=== PATIENT | female | born 1945 | race American Indian/Alaskan Native ===

== ENCOUNTER 2017-09-22 05:26 | Emergency (ER) | payer MEDICARE ==
[2017-09-22 07:12] LABS: Hematocrit 44.1 % (30.3-42.9); Hemoglobin 14.9 gm/dl (10.1-14.3); Mean Corpuscular HGB Conc 34 % (30-34); Mean Corpuscular Hemoglobin 29 pg (28-32); Mean Corpuscular Volume 87 fl (79-97); Red Blood Count 5.08 M/mm3 (3.65-5.03); Red Cell Distribution Width 13.6 % (13.2-15.2); White Blood Count 4.3 K/mm3 (4.5-11.0)
[2017-09-22 07:13] LABS: Platelet Count 93 K/mm3 (140-440)
--- NOTE | 2017-09-22 07:46 | XRay Report ---
FINAL REPORT EXAM: XR CHEST ROUTINE 2V HISTORY: cough and congestion TECHNIQUE: AP portable view(s) of the chest obtained. PRIORS: 06/14/2016 FINDINGS: No mediastinal shift. Cardiac silhouette is not enlarged. Mild hyperaeration of the lungs and flattening of the hemidiaphragms suggestive of COPD. No pneumothorax, effusion, or focal pulmonary opacity identified. No acute skeletal findings. Partially imaged cervical fusion hardware. IMPRESSION: No acute pulmonary finding identified.
[2017-09-22 07:51] LABS: Anion Gap 17 mmol/L; BUN/Creatinine Ratio 29; Blood Urea Nitrogen 40 mg/dL (7-17); Calcium 8.8 mg/dL (8.4-10.2); Carbon Dioxide 32 mmol/L (22-30); Glucose 147 mg/dL (65-100); Potassium 3.3 mmol/L (3.6-5.0); Sodium 135 mmol/L (137-145)
[2017-09-22 08:28] LABS: Anisocytosis 1+; Basophils % (Manual) 0 % (0.0-1.8); Blastocytes % (Manual) 0 %; Eosinophils % (Manual) 0 % (0.0-4.3); Ovalocytes 1+; Platelet Estimate Appears Decreased
[2017-09-22 08:29] LABS: Diff Status Complete; Microcytosis Few
[2017-09-22] MEDS ORDERED: DUONEB *Not for PRN Use IH ONE (09:23)
[2017-09-22] MEDS ORDERED: DELTASONE PO ONE (09:26)
[2017-09-22] MEDS ORDERED: K-DUR PO ONE (09:26)
--- NOTE | 2017-09-22 09:59 | Emergency Department Report ---
ED Shortness of Breath HPI - General Chief Complaint: Upper Respiratory Infection Stated Complaint: BODYACHES; CHILLS; COUGH Time Seen by Provider: 09/22/17 09:25 Source: patient Mode of arrival: Ambulatory Limitations: No Limitations - History of Present Illness MD Complaint: shortness of breath, cough -: Gradual Improves With: nothing Worsens With: nothing Known History Of: COPD Associated Symptoms: denies other symptoms Treatments Prior to Arrival: none - Related Data Home Oxygen Therapy: No Previous Rx's Medication Instructions Recorded Last Taken Type Carvedilol [Coreg] 3.125 mg PO BID #60 tablet 09/20/15 1 Day Ago Rx ~06/13/16 3.125 Albuterol Sulfate [Ventolin HFA] 2 puff IH Q4H PRN #1 hfa.aer.ad 06/20/16 Unknown Rx Ipratropium/Albuterol Sulfate 1 ampul IH TIDRT #120 ampul.neb 06/20/16 Unknown Rx [DUONEB *Not for PRN Use*] Ipratropium/Albuterol Sulfate 1 ampul IH Q8HR #120 ampul.neb 06/20/16 Unknown Rx [Duoneb 0.5 mg-3 mg/3 ml Soln] Tiotropium [Spiriva] 1 puff IH Q24HRT #30 cap 06/20/16 Unknown Rx predniSONE [Deltasone] 20 mg PO DAILY #5 tablet 09/22/17 Unknown Rx Allergies Allergy/AdvReac Type Severity Reaction Status Date / Time No Known Allergies Allergy Verified 09/07/15 10:56 ED Review of Systems ROS: Stated complaint: BODYACHES; CHILLS; COUGH Other details as noted in HPI Comment: All other systems reviewed and negative Respiratory: cough, shortness of breath, other (copd ) ED Past Medical Hx - Past Medical History Previous Medical History?: Yes Hx Hypertension: Yes Hx Heart Attack/AMI: Yes (1992,2014) Hx Congestive Heart Failure: Yes (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 HERNIATED DISC. History of alcoholic liver cirrhosis, thrombocytopenia - Surgical History Hx Coronary Stent: No Additional Surgical History: Cervical spine surgery, x 3 - Social History Smoking Status: Former Smoker Substance Use Type: Alcohol - Medications Home Medications: Home Medications Medication Instructions Recorded Confirmed Last Taken Type Carvedilol [Coreg] 3.125 mg PO BID #60 tablet 09/20/15 06/14/16 1 Day Ago Rx ~06/13/16 3.125 Albuterol Sulfate [Ventolin HFA] 2 puff IH Q4H PRN #1 hfa.aer.ad 06/20/16 Unknown Rx Ipratropium/Albuterol Sulfate 1 ampul IH TIDRT #120 ampul.neb 06/20/16 Unknown Rx [DUONEB *Not for PRN Use*] Ipratropium/Albuterol Sulfate 1 ampul IH Q8HR #120 ampul.neb 06/20/16 Unknown Rx [Duoneb 0.5 mg-3 mg/3 ml Soln] Tiotropium [Spiriva] 1 puff IH Q24HRT #30 cap 06/20/16 Unknown Rx predniSONE [Deltasone] 20 mg PO DAILY #5 tablet 09/22/17 Unknown Rx ED Physical Exam - General Limitations: No Limitations General appearance: alert, in no apparent distress - Head Head exam: Present: atraumatic - Eye Eye exam: Present: PERRL - ENT ENT exam: Present: mucous membranes moist - Neck Neck exam: Present: normal inspection - Respiratory Respiratory exam: Present: normal lung sounds bilaterally, wheezes - Cardiovascular Cardiovascular Exam: Present: regular rate, normal rhythm, normal heart sounds. Absent: systolic murmur, diastolic murmur, JVD, S3, S4 - GI/Abdominal GI/Abdominal exam: Present: soft, normal bowel sounds. Absent: distended, tenderness, guarding, rebound, rigid, diminished bowel sounds - Rectal Rectal exam: Present: deferred - Extremities Exam Extremities exam: Present: normal inspection, full ROM, normal capillary refill. Absent: tenderness, pedal edema, joint swelling, calf tenderness - Back Exam Back exam: Present: normal inspection, full ROM. Absent: tenderness, CVA tenderness (R), CVA tenderness (L), muscle spasm, paraspinal tenderness, vertebral tenderness - Neurological Exam Neurological exam: Present: alert, oriented X3, CN II-XII intact, normal gait - Psychiatric Psychiatric exam: Present: normal affect, normal mood - Skin Skin exam: Present: warm, dry, intact ED Course Vital Signs 09/22/17 09/22/17 09/22/17 05:36 05:54 09:12 Temperature 98.6 F 98.6 F Pulse Rate 99 H 100 H Pulse Rate [ 89 Posterior Bilateral Throughout] Respiratory 18 18 Rate Respiratory 18 Rate [Posterior Bilateral Throughout] Blood Pressure 91/66 91/66 O2 Sat by Pulse 91 93 Oximetry 09/22/17 09:54 Temperature Pulse Rate Pulse Rate [ 92 H Posterior Bilateral Throughout] Respiratory Rate Respiratory 18 Rate [Posterior Bilateral Throughout] Blood Pressure O2 Sat by Pulse Oximetry - Reevaluation(s) Reevaluation #1: 09/22/17 10:19 to er last pm sob copd cold aggitated her labs noted wheezing on admit rt tx and improved this am prednisone po k for low k no cp no swelling of legs no hjr pr hepatomeg. 12 lead is baseline trop neg ambulatory in er here w g daughter reviewed home meds pt does not seem to take as instructed no need for anbx. no wbc, no temp, no purulent sputum. discussed w pt and fam dc home w dc poc and fu with her pcp in am. discussed her meds/ kidney/heart etc. taking po ambulatory neuro intact on dc ED Medical Decision Making - Lab Data Result diagrams: 09/22/17 07:02 09/22/17 07:02 - EKG Data -: EKG Interpreted by Me EKG shows normal: sinus rhythm - EKG Data When compared to previous EKG there are: no significant change Interpretation: no acute changes - Radiology Data Radiology results: report reviewed, image reviewed - Medical Decision Making see note - Differential Diagnosis chf v copd w or wo infection Critical care attestation.: If time is entered above; I have spent that time in minutes in the direct care of this critically ill patient, excluding procedure time. ED Disposition Clinical Impression: Acute exacerbation of COPD with asthma, Smoker, CKD (chronic kidney disease), Hypokalemia Disposition: DC-01 TO HOME OR SELFCARE Is pt being admited?: No Does the pt Need Aspirin: No Condition: Stable Instructions: Chronic Obstructive Pulmonary Disease (ED) Additional Instructions: take your home meds including neb and proair take med as given today no fever or purulent sputum- xray normal so no antibiotic follow up with pcp in am for reevaluation Prescriptions: predniSONE [Deltasone] 20 mg PO DAILY #5 tablet Referrals: PRIMARY CARE, [Primary Care Provider] - 3-5 Days Time of Disposition: 09:58
[2017-09-22 10:21] VITALS: BP 111/78
== END 2017-09-22 10:22 | disposition home or self-care (01) ==
LOC: ED 05:26
DX: J44.1 Chronic obstructive pulmonary disease with (acute) exacerbation (principal); E87.6 Hypokalemia; I13.0 Hypertensive heart and chronic kidney disease with heart failure and stage 1 through stage 4 chronic kidney disease, or unspecified chronic kidney disease; E11.22 Type 2 diabetes mellitus with diabetic chronic kidney disease; N18.9 Chronic kidney disease, unspecified; I50.9 Heart failure, unspecified; E11.40 Type 2 diabetes mellitus with diabetic neuropathy, unspecified; K21.9 Gastro-esophageal reflux disease without esophagitis; I25.2 Old myocardial infarction; M19.90 Unspecified osteoarthritis, unspecified site; Z87.891 Personal history of nicotine dependence
CPT/HCPCS: 71020; 93005; 93010; 99284; J7512; 36415; 80048; 83880; 84484; 85007; 85025; 87400

== ENCOUNTER 2019-01-26 14:02 | Inpatient (IN) | payer MEDICARE ==
[2019-01-26] MEDS ORDERED: PROVENTIL IH ONE ×2 (14:10→14:26)
[2019-01-26] MEDS ORDERED: ATROVENT IH ONE ×2 (14:10→14:26)
[2019-01-26] MEDS ORDERED: NACL 0.9% 500 ML 500 ML IV ONE ×2 (14:26→18:14)
[2019-01-26] MEDS ORDERED: SOLU-Medrol IV ONE (14:26)
--- NOTE | 2019-01-26 14:27 | Emergency Department Report ---
ED General Adult HPI - General Chief complaint: Dyspnea/Respdistress Stated complaint: SOB Time Seen by Provider: 01/26/19 14:12 Source: patient, RN notes reviewed, old records reviewed Mode of arrival: Ambulatory Limitations: Physical Limitation - History of Present Illness Initial comments: Primary care Dr.: Dr. Allan Bentley Past medical history: COPD, heart disease, probable alcoholic cirrhosis, anemia, previous history of respiratory arrest, COPD exacerbation This is a 73-year-old female who presents to the emergency room today with a complaint of painless cough, wheezing, shortness of breath, malaise, fatigue. Symptoms present for around a week and a half to 2 weeks. She saw her primary care doctor, who prescribed levofloxacin. She has taken 8 out of 10 days of the aforementioned antibiotic, today would be her ninth day. She reports persistent cough, wheezing, malaise, shortness of breath. Symptoms were improved with albuterol, Atrovent and steroids in the emergency room, although still wheezing and short of breath. She denies DVT, pulmonary embolus risk factors. She denies headache, neck pain, chest pain, abdominal pain, urinary symptoms, extremity weakness, numbness. She is amenable to hospitalization for respiratory support, and escalation of antibiotic therapy. Had an echocardiogram in 2016, which showed an ejection fraction of 50-55%, normal left ventricular chamber size, and left ventricular systolic function "at the lower limits of normal." -: Gradual, days(s) Severity scale (0 -10): 0 Consistency: intermittent Improves with: medication, rest Worsens with: movement - Related Data Previous Rx's Medication Instructions Recorded Last Taken Type Carvedilol [Coreg] 3.125 mg PO BID #60 tablet 09/20/15 1 Day Ago Rx ~06/13/16 3.125 Albuterol Sulfate [Ventolin HFA] 2 puff IH Q4H PRN #1 hfa.aer.ad 06/20/16 Unknown Rx Ipratropium/Albuterol Sulfate 1 ampul IH TIDRT #120 ampul.neb 06/20/16 Unknown Rx [DUONEB *Not for PRN Use*] Ipratropium/Albuterol Sulfate 1 ampul IH Q8HR #120 ampul.neb 06/20/16 Unknown Rx [Duoneb 0.5 mg-3 mg/3 ml Soln] Tiotropium [Spiriva] 1 puff IH Q24HRT #30 cap 06/20/16 Unknown Rx predniSONE [Deltasone] 20 mg PO DAILY #5 tablet 09/22/17 Unknown Rx Allergies Allergy/AdvReac Type Severity Reaction Status Date / Time No Known Allergies Allergy Verified 01/26/19 14:28 ED Review of Systems ROS: Stated complaint: SOB Other details as noted in HPI Constitutional: malaise, weakness Eyes: denies: vision change ENT: congestion Respiratory: cough, shortness of breath, SOB with exertion, SOB at rest, wh eezing Cardiovascular: dyspnea on exertion. 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 HERNIATED DISC. History of alcoholic liver cirrhosis, thrombocytopenia - Surgical History Hx Coronary Stent: No Additional Surgical History: Cervical spine surgery, x 3 - Social History Smoking Status: Former Smoker Substance Use Type: None - Medications Home Medications: Home Medications Medication Instructions Recorded Confirmed Last Taken Type Carvedilol [Coreg] 3.125 mg PO BID #60 tablet 09/20/15 06/14/16 1 Day Ago Rx ~06/13/16 3.125 Albuterol Sulfate [Ventolin HFA] 2 puff IH Q4H PRN #1 hfa.aer.ad 06/20/16 Unknown Rx Ipratropium/Albuterol Sulfate 1 ampul IH TIDRT #120 ampul.neb 06/20/16 Unknown Rx [DUONEB *Not for PRN Use*] Ipratropium/Albuterol Sulfate 1 ampul IH Q8HR #120 ampul.neb 06/20/16 Unknown Rx [Duoneb 0.5 mg-3 mg/3 ml Soln] Tiotropium [Spiriva] 1 puff IH Q24HRT #30 cap 06/20/16 Unknown Rx predniSONE [Deltasone] 20 mg PO DAILY #5 tablet 09/22/17 Unknown Rx ED Physical Exam - General Limitations: No Limitations General appearance: alert, anxious, in distress - Head Head exam: Present: atraumatic, normocephalic - Eye Eye exam: Present: normal appearance, EOMI. Absent: nystagmus - ENT ENT exam: Present: normal exam, normal orophraynx, mucous membranes moist, normal external ear exam - Neck Neck exam: Present: normal inspection, full ROM. Absent: tenderness, meningismus - Respiratory Respiratory exam: Present: respiratory distress, wheezes, rhonchi. Absent: decreased breath sounds - Cardiovascular Cardiovascular Exam: Present: normal rhythm, tachycardia, normal heart sounds. Absent: systolic murmur, diastolic murmur, rubs, gallop - GI/Abdominal GI/Abdominal exam: Present: soft. Absent: distended, tenderness, guarding, rebound, rigid, pulsatile mass - Extremities Exam Extremities exam: Present: normal inspection, full ROM, other (2+ pulses noted in the bilateral upper, lower extremities. Compartments soft. No long bony tenderness. The pelvis is stable.). Absent: pedal edema, joint swelling, calf tenderness - Back Exam Back exam: Present: normal inspection, full ROM. Absent: tenderness, CVA tenderness (R), paraspinal tenderness, vertebral tenderness - Neurological Exam Neurological exam: Present: alert, other (Extraocular movements intact. Tongue midline. No facial droop. Facial sensation intact to light touch in the V1, V2, V3 distribution bilaterally. 5 and 5 strength in 4 extremities.. Sensation is intact to light touch in 4 extremities.). Absent: motor sensory deficit - Psychiatric Psychiatric exam: Present: normal affect, normal mood - Skin Skin exam: Present: warm, dry, intact, normal color. Absent: rash ED Course Vital Signs 01/26/19 01/26/19 01/26/19 14:18 14:26 15:00 Temperature 98.2 F Pulse Rate 109 H 97 H 84 Respiratory 24 21 29 H Rate Blood Pressure 222/127 146/89 Blood Pressure 154/106 [Right] O2 Sat by Pulse 98 99 100 Oximetry 01/26/19 01/26/19 16:00 17:00 Temperature Pulse Rate 83 84 Respiratory 27 H 29 H Rate Blood Pressure 155/94 150/90 Blood Pressure [Right] O2 Sat by Pulse 100 98 Oximetry ED Medical Decision Making - Lab Data Result diagrams: 01/26/19 14:50 01/26/19 14:50 Vital Signs 01/26/19 01/26/19 01/26/19 14:18 14:26 15:00 Temperature 98.2 F Pulse Rate 109 H 97 H 84 Respiratory 24 21 29 H Rate Blood Pressure 222/127 146/89 Blood Pressure 154/106 [Right] O2 Sat by Pulse 98 99 100 Oximetry 01/26/19 01/26/19 16:00 17:00 Temperature Pulse Rate 83 84 Respiratory 27 H 29 H Rate Blood Pressure 155/94 150/90 Blood Pressure [Right] O2 Sat by Pulse 100 98 Oximetry Lab Results 01/26/19 01/26/19 01/26/19 Range/Units 14:50 14:50 14:50 WBC 3.7 L (4.5-11.0) K/mm3 RBC 5.44 H (3.65-5.03) M/mm3 Hgb 14.8 H (10.1-14.3) gm/dl Hct 44.4 H (30.3-42.9) % MCV 82 (79-97) fl MCH 27 L (28-32) pg MCHC 33 (30-34) % RDW 16.4 H (13.2-15.2) % Plt Count 174 (140-440) K/mm3 Lymph % (Auto) 19.7 (13.4-35.0) % [place] % (Auto) 13.6 H (0.0-7.3) % Eos % (Auto) 0.3 (0.0-4.3) % Baso % (Auto) 0.3 (0.0-1.8) % Lymph # 0.7 L (1.2-5.4) K/mm3 [place] # 0.5 (0.0-0.8) K/mm3 Eos # 0.0 (0.0-0.4) K/mm3 Baso # 0.0 (0.0-0.1) K/mm3 Seg Neutrophils % 66.1 (40.0-70.0) % Seg Neutrophils # 2.5 (1.8-7.7) K/mm3 PT 16.0 H (12.2-14.9) Sec. INR 1.20 H (0.87-1.13) Sodium 138 (137-145) mmol/L Potassium 4.5 (3.6-5.0) mmol/L Chloride 98.5 (98-107) mmol/L Carbon Dioxide 27 (22-30) mmol/L Anion Gap 17 mmol/L BUN 13 (7-17) mg/dL Creatinine 0.8 (0.7-1.2) mg/dL Estimated GFR > 60 ml/min BUN/Creatinine Ratio 16 % Glucose 109 H (65-100) mg/dL Calcium 9.4 (8.4-10.2) mg/dL Magnesium 2.00 (1.7-2.3) mg/dL Total Creatine Kinase 55 (30-135) units/L Troponin T < 0.010 (0.00-0.029) ng/mL NT-Pro-B Natriuret Pep 322.4 (0-900) pg/mL - EKG Data -: EKG Interpreted by Il EKG shows normal: sinus rhythm Rate: normal - EKG Data 01/26/19 18:27 This is a normal sinus rhythm, 93 bpm, normal axis, QTC prolonged, motion artifact, poor R-wave progression, not having chest pain, abnormal EKG, not consistent with ST elevation myocardial infarction. - Radiology Data Radiology results: report reviewed, image reviewed int Report Referring Physician: HANNAH LOMBARDO Patient Name: BRICE TORRES Date of : 1945 Sex: Female Report Date: 2019-01-26 Report Status: Finalized Findings [address] [address] XRay Report Signed Patient: BRICE TORRES MR#: [id number] 726 : 1945 Acct:[id number] Age/Sex: 73 / F ADM Date: 01/26/19 Loc: ED Attending Dr: Ordering Physician: HANNAH LOMBARDO MD Date of Service: 01/26/19 Procedure(s): XR chest 1V ap Accession Number(s): [id number] cc: HANNAH LOMBARDO MD Fluoro Ti me In Minutes: AP CHEST: HISTORY: Dyspnea The lungs are hyperinflated suggesting underlying emphysematous changes. Subtle focal air space opacities are identified in the lingula, lower right upper lobe and lateral right lower lobe which are new since 09/22/17. These could represent early infiltrates. Trace right pleural effusion is suspected. Heart size is within normal limits. IMPRESSION: Emphysematous changes. Subtle lung opacities concerning for early pneumonic infiltrates. Trace right pleural effusion. Transcribed By: TTR Dictated By: ALLAN STAFFORD JR, MD Electronically Authenticated By: ALLAN STAFFORD JR, MD Signed Date/Time: 01/26/191518 DD/ 17 TD/TT: 01/26/191518 - Medical Decision Making Differential diagnosis, including but not limited to: COPD exacerbation, bronchitis, pneumonia Assessment and plan: 73-year-old female, known history of respiratory arrest in the past (I have personally intubated this patient for respiratory arrest in 2016), who has been on appropriate outpatient first line antibiotic therapy for presumed bronchitis, pneumonia (levofloxacin), with persistent symptoms, and multifocal pneumonia. The patient is wheezing, and has rhonchi I have recommended admission for respiratory support, antibiotic escalation, and close monitoring. The patient is amenable to this plan of care. The case was presented to the Hospital physician, Dr. Jose Armando Dudley, who has accepted the patient to his service. Critical care attestation.: If time is entered above; I have spent that time in minutes in the direct care of this critically ill patient, excluding procedure time. ED Disposition Clinical Impression: Acute exacerbation of COPD with asthma Disposition: OP ADMIT IP TO THIS HOSP Is pt being admited?: Yes Does the pt Need Aspirin: No Condition: Good Instructions: Asthma (ED)
--- NOTE | 2019-01-26 15:23 | XRay Report ---
AP CHEST: HISTORY: Dyspnea The lungs are hyperinflated suggesting underlying emphysematous changes. Subtle focal air space opacities are identified in the lingula, lower right upper lobe and lateral right lower lobe which are new since 09/22/17. These could represent early infiltrates. Trace right pleural effusion is suspected. Heart size is within normal limits. IMPRESSION: Emphysematous changes. Subtle lung opacities concerning for early pneumonic infiltrates. Trace right pleural effusion.
[2019-01-26 15:27] LABS: BUN/Creatinine Ratio 16; Blood Urea Nitrogen 13 mg/dL (7-17); Calcium 9.4 mg/dL (8.4-10.2); Hemolysis Index 0
[2019-01-26 15:46] LABS: Basophils % (Auto) 0.3 % (0.0-1.8); Eosinophils % (Auto) 0.3 % (0.0-4.3); Hematocrit 44.4 % (30.3-42.9); Hemoglobin 14.8 gm/dl (10.1-14.3); Lymphocytes # (Auto) 0.7 K/mm3 (1.2-5.4); Lymphocytes % (Auto) 19.7 % (13.4-35.0); Mean Corpuscular HGB Conc 33 % (30-34); Mean Corpuscular Volume 82 fl (79-97); Monocytes # (Auto) 0.5 K/mm3 (0.0-0.8); Monocytes % (Auto) 13.6 % (0.0-7.3); Platelet Count 174 K/mm3 (140-440); Red Blood Count 5.44 M/mm3 (3.65-5.03); Red Cell Distribution Width 16.4 % (13.2-15.2)
[2019-01-26 15:56] LABS: INR 1.2 (0.87-1.13)
[2019-01-26] MEDS ORDERED: ROCEPHIN 1,000 MG in NACL 0.9% 50 ML IV STA (18:14)
[2019-01-26] MEDS ORDERED: ZITHROMAX PO ONE ×2 (18:14→19:00)
[2019-01-26 18:47] LABS: Bilirubin,Urine NEG (Negative); Blood,Urine NEG (Negative); Color,Urine Amber (Yellow); Hyaline Casts,Urine 3 /LPF; Mucus,Urine FEW /HPF
[2019-01-26] MEDS ORDERED: ROCEPHIN/NS 1 GM/50 ML 1 GM/50 ML BAG IV ONE (19:00)
--- NOTE | 2019-01-26 19:50 | History and Physical Report ---
History of Present Illness Date of examination: 01/26/19 Date of admission: 01/26/19 18:29 Chief complaint: cough, wheezing, shortness of breath [id number] History of present illness: Patient is a 73-year-old female with past medical history of HTN, COPD/emphysema who presents to the ER with complaints of cough, wheezing, shortness of breath, for at least 2 weeks. Patient states that the symptoms kept getting worse, she uses her nebulizers at home without improvement, she also reports malaise and fatigue. Pt states that she went to her PCP prescribed her Levaquin, she has been taking the medications for a few days without improvement of the symptoms. Pt states that she decided to come to the ER for evaluation. In the ER, pt had a chest x-ray that showed increasing emphysematous changes, subtle opacity concerning for early pneumonic to infiltrate. Patient was started on IV steroid, nebulizer treatment with some good improvement in the symptoms, she is admitted for treatment of pneumonia and COPD exacerbation. Past History Past Medical History: COPD, hypertension Past Surgical History: No surgical history Social history: smoking Family history: no significant family history Medications and Allergies Allergies Allergy/AdvReac Type Severity Reaction Status Date / Time No Known Allergies Allergy Verified 01/26/19 14:28 Home Medications Medication Instructions Recorded Confirmed Last Taken Type Carvedilol [Coreg] 1 tab PO BID 01/26/19 01/26/19 Unknown History levoFLOXacin [Levofloxacin] 2 tab PO DAILY 01/26/19 01/26/19 Unknown History Review of Systems Constitutional: fatigue, malaise, chronic pain Breasts: deferred Respiratory: shortness of breath Exam - Constitutional Vitals: Temp Pulse Resp BP Pulse Ox 98.2 F 84 29 H 150/90 98 01/26/19 14:26 01/26/19 17:00 01/26/19 17:00 01/26/19 17:00 01/26/19 17:00 General appearance: Present: mild distress - EENT Eyes: Present: PERRL - Respiratory Respiratory effort: labored, accessory muscle use Respiratory: bilateral: rales - Rectal Rectal Exam: deferred - Integumentary Integumentary: Present: clear - Musculoskeletal Musculoskeletal: strength equal bilaterally - Psychiatric Psychiatric: appropriate mood/affect Results - Labs CBC & Chem 7: 01/26/19 14:50 01/26/19 14:50 Labs: Laboratory Last Values WBC 3.7 K/mm3 (4.5-11.0) L 01/26/19 14:50 RBC 5.44 M/mm3 (3.65-5.03) H 01/26/19 14:50 Hgb 14.8 gm/dl (10.1-14.3) H 01/26/19 14:50 Hct 44.4 % (30.3-42.9) H 01/26/19 14:50 MCV 82 fl (79-97) 01/26/19 14:50 MCH 27 pg (28-32) L 01/26/19 14:50 MCHC 33 % (30-34) 01/26/19 14:50 RDW 16.4 % (13.2-15.2) H 01/26/19 14:50 Plt Count 174 K/mm3 (140-440) 01/26/19 14:50 Lymph % (Auto) 19.7 % (13.4-35.0) 01/26/19 14:50 [place] % (Auto) 13.6 % (0.0-7.3) H 01/26/19 14:50 Eos % (Auto) 0.3 % (0.0-4.3) 01/26/19 14:50 Baso % (Auto) 0.3 % (0.0-1.8) 01/26/19 14:50 Lymph # 0.7 K/mm3 (1.2-5.4) L 01/26/19 14:50 [place] # 0.5 K/mm3 (0.0-0.8) 01/26/19 14:50 Eos # 0.0 K/mm3 (0.0-0.4) 01/26/19 14:50 Baso # 0.0 K/mm3 (0.0-0.1) 01/26/19 14:50 Seg Neutrophils % 66.1 % (40.0-70.0) 01/26/19 14:50 Seg Neutrophils # 2.5 K/mm3 (1.8-7.7) 01/26/19 14:50 PT 16.0 Sec. (12.2-14.9) H 01/26/19 14:50 INR 1.20 (0.87-1.13) H 01/26/19 14:50 Sodium 138 mmol/L (137-145) 01/26/19 14:50 Potassium 4.5 mmol/L (3.6-5.0) 01/26/19 14:50 Chloride 98.5 mmol/L (98-107) 01/26/19 14:50 Carbon Dioxide 27 mmol/L (22-30) 01/26/19 14:50 Anion Gap 17 mmol/L 01/26/19 14:50 BUN 13 mg/dL (7-17) 01/26/19 14:50 Creatinine 0.8 mg/dL (0.7-1.2) 01/26/19 14:50 Estimated GFR > 60 ml/min 01/26/19 14:50 BUN/Creatinine Ratio 16 % 01/26/19 14:50 Glucose 109 mg/dL (65-100) H 01/26/19 14:50 Lactic Acid 1.00 mmol/L (0.7-2.0) 01/26/19 18:29 Calcium 9.4 mg/dL (8.4-10.2) 01/26/19 14:50 Magnesium 2.00 mg/dL (1.7-2.3) 01/26/19 14:50 Total Creatine Kinase 55 units/L (30-135) 01/26/19 14:50 Troponin T < 0.010 ng/mL (0.00-0.029) 01/26/19 14:50 NT-Pro-B Natriuret Pep 322.4 pg/mL (0-900) 01/26/19 14:50 Urine Color Megan (Yellow) 01/26/19 18:03 Urine Turbidity Slightly-cloudy (Clear) 01/26/19 18:03 Urine pH 5.0 (5.0-7.0) 01/26/19 18:03 Ur Specific [place] 1.033 (1.003-1.030) H 01/26/19 18:03 Urine Protein 100 mg/dl mg/dL (Negative) 01/26/19 18:03 Urine Glucose (UA) Neg mg/dL (Negative) 01/26/19 18:03 Urine Ketones Tr mg/dL (Negative) 01/26/19 18:03 Urine Blood Neg (Negative) 01/26/19 18:03 Urine Nitrite Neg (Negative) 01/26/19 18:03 Urine Bilirubin Neg (Negative) 01/26/19 18:03 Urine Urobilinogen 4.0 mg/dL (<2.0) 01/26/19 18:03 Ur Leukocyte Esterase Neg (Negative) 01/26/19 18:03 Urine WBC (Auto) 7.0 /HPF (0.0-6.0) H 01/26/19 18:03 Urine RBC (Auto) 4.0 /HPF (0.0-6.0) 01/26/19 18:03 U Epithel Cells (Auto) 5.0 /HPF (0-13.0) 01/26/19 18:03 Hyaline Casts 3 /LPF 01/26/19 18:03 Urine Mucus Few /HPF 01/26/19 18:03 Assessment and Plan Assessment and plan: 1. Acute pneumonia (CAP) 2. COPD/emphysema with acute exacerbation 3. Hypertension 4. Dehydration Plan: Continue nebulizers chief PRN for SOB Continue IV steroid every 6 hours Antibiotics with ceftriaxone and Zithromax Cough suppressant with Tessalon Perle Resume home med Plan of care discussed with patient, voiced understanding. Patient's condition and plan of care discussed with Dr. Horton Advance Directives: Yes VTE prophylaxis?: Chemical Plan of care discussed with patient/family: Yes
[2019-01-26] MEDS: DUONEB *Not for PRN Use IH SCH (21:46)
[2019-01-26] MEDS: PULMICORT IH SCH (21:46)
[2019-01-26] MEDS: SINGULAIR PO SCH (22:53)
[2019-01-26] MEDS: TESSALON PERLES PO SCH (23:28)
[2019-01-26] MEDS: SOLU-Medrol IV SCH (23:29)
[2019-01-27] MEDS: DUONEB *Not for PRN Use IH SCH ×4 (04:01→20:16)
[2019-01-27] MEDS: SOLU-Medrol IV SCH ×3 (05:34→17:31)
[2019-01-27] MEDS: TESSALON PERLES PO SCH ×3 (05:34→21:10)
--- NOTE | 2019-01-27 09:23 | Progress Note ---
Assessment and Plan Assessment and plan: --Right-sided pneumonia (CAP); Continue IV antibiotics Rocephin and Zithromax, follow cultures Supportive care --Acute exacerbation of COPD with acute bronchitis Oxygen titrated O2 sats more than 90%, nebulizers, IV steroids IV antibiotics, inhalation steroids, pulmonary evaluation if needed -- Hypertension; moderate control, continue current antihypertensives When necessary hydralazine -- Dehydration; IV fluids and supportive care --DVT prophylaxis; Lovenox --Full code Monitor closely and adjust the management as needed History Interval history: Patient seen and examined medical records reviewed Admitted with acute exacerbation of COPD Patient feels slightly better Vital signs noted Hospitalist Physical - Constitutional Vitals: Temp Pulse Resp BP Pulse Ox 97.8 F 90 14 157/99 95 01/27/19 07:57 01/27/19 07:57 01/27/19 07:57 01/27/19 07:57 01/27/19 07:57 General appearance: Present: no acute distress, well-nourished - EENT Eyes: Present: PERRL, EOM intact - Neck Neck: Present: supple, normal ROM - Respiratory Respiratory effort: normal Respiratory: bilateral: diminished, rhonchi, negative: rales, wheezing - Cardiovascular Rhythm: regular Heart Sounds: Present: S1 & S2 - Extremities Extremities: no ischemia, No edema Peripheral Pulses: within normal limits - Abdominal General gastrointestinal: soft, non-tender, non-distended, normal bowel sounds - Integumentary Integumentary: Present: clear, warm - Psychiatric Psychiatric: appropriate mood/affect, cooperative - Neurologic Neurologic: CNII-XII intact, moves all extremities Results - Labs CBC & Chem 7: 01/26/19 14:50 01/26/19 14:50 Labs: Laboratory Last Values WBC 3.7 K/mm3 (4.5-11.0) L 01/26/19 14:50 RBC 5.44 M/mm3 (3.65-5.03) H 01/26/19 14:50 Hgb 14.8 gm/dl (10.1-14.3) H 01/26/19 14:50 Hct 44.4 % (30.3-42.9) H 01/26/19 14:50 MCV 82 fl (79-97) 01/26/19 14:50 MCH 27 pg (28-32) L 01/26/19 14:50 MCHC 33 % (30-34) 01/26/19 14:50 RDW 16.4 % (13.2-15.2) H 01/26/19 14:50 Plt Count 174 K/mm3 (140-440) 01/26/19 14:50 Lymph % (Auto) 19.7 % (13.4-35.0) 01/26/19 14:50 [place] % (Auto) 13.6 % (0.0-7.3) H 01/26/19 14:50 Eos % (Auto) 0.3 % (0.0-4.3) 01/26/19 14:50 Baso % (Auto) 0.3 % (0.0-1.8) 01/26/19 14:50 Lymph # 0.7 K/mm3 (1.2-5.4) L 01/26/19 14:50 [place] # 0.5 K/mm3 (0.0-0.8) 01/26/19 14:50 Eos # 0.0 K/mm3 (0.0-0.4) 01/26/19 14:50 Baso # 0.0 K/mm3 (0.0-0.1) 01/26/19 14:50 Seg Neutrophils % 66.1 % (40.0-70.0) 01/26/19 14:50 Seg Neutrophils # 2.5 K/mm3 (1.8-7.7) 01/26/19 14:50 PT 16.0 Sec. (12.2-14.9) H 01/26/19 14:50 INR 1.20 (0.87-1.13) H 01/26/19 14:50 Sodium 138 mmol/L (137-145) 01/26/19 14:50 Potassium 4.5 mmol/L (3.6-5.0) 01/26/19 14:50 Chloride 98.5 mmol/L (98-107) 01/26/19 14:50 Carbon Dioxide 27 mmol/L (22-30) 01/26/19 14:50 Anion Gap 17 mmol/L 01/26/19 14:50 BUN 13 mg/dL (7-17) 01/26/19 14:50 Creatinine 0.8 mg/dL (0.7-1.2) 01/26/19 14:50 Estimated GFR > 60 ml/min 01/26/19 14:50 BUN/Creatinine Ratio 16 % 01/26/19 14:50 Glucose 109 mg/dL (65-100) H 01/26/19 14:50 Lactic Acid 1.00 mmol/L (0.7-2.0) 01/26/19 18:29 Calcium 9.4 mg/dL (8.4-10.2) 01/26/19 14:50 Magnesium 2.00 mg/dL (1.7-2.3) 01/26/19 14:50 Total Creatine Kinase 55 units/L (30-135) 01/26/19 14:50 Troponin T < 0.010 ng/mL (0.00-0.029) 01/26/19 14:50 NT-Pro-B Natriuret Pep 322.4 pg/mL (0-900) 01/26/19 14:50 Urine Color [place] (Yellow) 01/26/19 18:03 Urine Turbidity Slightly-cloudy (Clear) 01/26/19 18:03 Urine pH 5.0 (5.0-7.0) 01/26/19 18:03 Ur Specific [place] 1.033 (1.003-1.030) H 01/26/19 18:03 Urine Protein 100 mg/dl mg/dL (Negative) 01/26/19 18:03 Urine Glucose (UA) Neg mg/dL (Negative) 01/26/19 18:03 Urine Ketones Tr mg/dL (Negative) 01/26/19 18:03 Urine Blood Neg (Negative) 01/26/19 18:03 Urine Nitrite Neg (Negative) 01/26/19 18:03 Urine Bilirubin Neg (Negative) 01/26/19 18:03 Urine Urobilinogen 4.0 mg/dL (<2.0) 01/26/19 18:03 Ur Leukocyte Esterase Neg (Negative) 01/26/19 18:03 Urine WBC (Auto) 7.0 /HPF (0.0-6.0) H 01/26/19 18:03 Urine RBC (Auto) 4.0 /HPF (0.0-6.0) 01/26/19 18:03 U Epithel Cells (Auto) 5.0 /HPF (0-13.0) 01/26/19 18:03 Hyaline Casts 3 /LPF 01/26/19 18:03 Urine Mucus Few /HPF 01/26/19 18:03 Active Medications - Current Medications Current Medications: Generic Name Dose Route Start Last Admin Trade Name Freq PRN Reason Stop Dose Admin Albuterol/Ipratropium 1 ampul 01/26/19 20:00 01/27/19 04:01 Duoneb *Not For Prn Use* IH 1 ampul Q6HRT CODY Administration Azithromycin 500 mg 01/28/19 10:00 Zithromax PO QDAY CODY Benzonatate 200 mg 01/26/19 23:45 01/27/19 05:34 Tessalon Perles PO 200 mg Q8HR CODY Administration Budesonide 0.5 mg 01/26/19 20:00 01/26/19 21:46 Pulmicort IH 0.5 mg Q12HRT CODY Administration Carvedilol mg 01/27/19 10:00 Coreg PO BID CODY Azithromycin 500 mg/ Sodium 250 mls @ 250 mls/hr 01/27/19 10:00 Chloride IV 01/27/19 14:00 DAILY CODY Ceftriaxone Sodium 1 gm in 50 mls @ 100 mls/hr 01/27/19 10:00 Rocephin/Ns 1 Gm/50 Ml IV Q24HR [facility] Protocol Methylprednisolone Sodium Succinate 40 mg 01/27/19 00:00 01/27/19 05:34 Solu-Medrol IV 40 mg Q6HR CODY Administration Montelukast Sodium 10 mg 01/26/19 22:00 01/26/19 22:53 Singulair PO 10 mg QHS CODY Administration
[2019-01-27] MEDS: PULMICORT IH SCH ×2 (09:45→20:16)
[2019-01-27] MEDS: ROCEPHIN/NS 1 GM/50 ML 1 GM/50 ML BAG IV SCH (09:50)
[2019-01-27] MEDS ORDERED: ZITHROMAX 500 MG in NACL 0.9% 250ML 250 ML IV SCH (10:00)
[2019-01-27] MEDS ORDERED: COREG PO SCH ×2 (10:00)
[2019-01-27] MEDS: COREG PO SCH ×2 (10:52→21:15)
[2019-01-27] MEDS: SINGULAIR PO SCH (21:13)
[2019-01-28] MEDS: SOLU-Medrol IV SCH ×4 (00:58→18:20)
[2019-01-28] MEDS: DUONEB *Not for PRN Use IH SCH ×4 (02:20→20:43)
[2019-01-28] MEDS: TESSALON PERLES PO SCH ×3 (05:31→21:50)
[2019-01-28] MEDS: PULMICORT IH SCH ×2 (08:39→20:43)
[2019-01-28] MEDS: ROCEPHIN/NS 1 GM/50 ML 1 GM/50 ML BAG IV SCH (09:20)
[2019-01-28] MEDS: COREG PO SCH ×2 (09:22→21:50)
[2019-01-28] MEDS: ZITHROMAX PO SCH (09:23)
[2019-01-28] MEDS ORDERED: APRESOLINE IV ONE (10:00)
--- NOTE | 2019-01-28 19:37 | Progress Note ---
Assessment and Plan Assessment and plan: --Acute exacerbation of COPD with acute bronchitis Oxygen titrated O2 sats more than 90%, nebulizers, IV steroids IV antibiotics, inhalation steroids, pulmonary evaluation if needed --Right-sided pneumonia (CAP); Continue IV antibiotics Rocephin and Zithromax, follow cultures Supportive care -- Hypertension; moderate control, continue current antihypertensives When necessary hydralazine -- Dehydration; IV fluids and supportive care --DVT prophylaxis; Lovenox --Full code Monitor closely and adjust the management as needed Evaluation for home oxygen at discharge History Interval history: Patient seen and examined medical records reviewed Receiving breathing treatments nebulizers Patient continues to have mild wheeze Alert awake oriented 3 Vital signs reviewed Hospitalist Physical - Constitutional Vitals: Temp Pulse Resp BP Pulse Ox 97.5 F L 105 H 24 187/107 97 01/28/19 18:50 01/28/19 18:50 01/28/19 18:50 01/28/19 18:50 01/28/19 18:50 General appearance: Present: no acute distress, well-nourished - EENT Eyes: Present: PERRL, EOM intact - Neck Neck: Present: supple, normal ROM - Respiratory Respiratory effort: normal Respiratory: bilateral: diminished, wheezing, negative: rales, rhonchi - Cardiovascular Rhythm: regular Heart Sounds: Present: S1 & S2 - Extremities Extremities: no ischemia, No edema Peripheral Pulses: within normal limits - Abdominal General gastrointestinal: soft, non-tender, non-distended, normal bowel sounds - Integumentary Integumentary: Present: clear, warm - Psychiatric Psychiatric: appropriate mood/affect, cooperative - Neurologic Neurologic: CNII-XII intact, moves all extremities Results - Labs CBC & Chem 7: 01/26/19 14:50 01/26/19 14:50 Labs: Laboratory Last Values WBC 3.7 K/mm3 (4.5-11.0) L 01/26/19 14:50 RBC 5.44 M/mm3 (3.65-5.03) H 01/26/19 14:50 Hgb 14.8 gm/dl (10.1-14.3) H 01/26/19 14:50 Hct 44.4 % (30.3-42.9) H 01/26/19 14:50 MCV 82 fl (79-97) 01/26/19 14:50 MCH 27 pg (28-32) L 01/26/19 14:50 MCHC 33 % (30-34) 01/26/19 14:50 RDW 16.4 % (13.2-15.2) H 01/26/19 14:50 Plt Count 174 K/mm3 (140-440) 01/26/19 14:50 Lymph % (Auto) 19.7 % (13.4-35.0) 01/26/19 14:50 [place] % (Auto) 13.6 % (0.0-7.3) H 01/26/19 14:50 Eos % (Auto) 0.3 % (0.0-4.3) 01/26/19 14:50 Baso % (Auto) 0.3 % (0.0-1.8) 01/26/19 14:50 Lymph # 0.7 K/mm3 (1.2-5.4) L 01/26/19 14:50 [place] # 0.5 K/mm3 (0.0-0.8) 01/26/19 14:50 Eos # 0.0 K/mm3 (0.0-0.4) 01/26/19 14:50 Baso # 0.0 K/mm3 (0.0-0.1) 01/26/19 14:50 Seg Neutrophils % 66.1 % (40.0-70.0) 01/26/19 14:50 Seg Neutrophils # 2.5 K/mm3 (1.8-7.7) 01/26/19 14:50 PT 16.0 Sec. (12.2-14.9) H 01/26/19 14:50 INR 1.20 (0.87-1.13) H 01/26/19 14:50 Sodium 138 mmol/L (137-145) 01/26/19 14:50 Potassium 4.5 mmol/L (3.6-5.0) 01/26/19 14:50 Chloride 98.5 mmol/L (98-107) 01/26/19 14:50 Carbon Dioxide 27 mmol/L (22-30) 01/26/19 14:50 Anion Gap 17 mmol/L 01/26/19 14:50 BUN 13 mg/dL (7-17) 01/26/19 14:50 Creatinine 0.8 mg/dL (0.7-1.2) 01/26/19 14:50 Estimated GFR > 60 ml/min 01/26/19 14:50 BUN/Creatinine Ratio 16 % 01/26/19 14:50 Glucose 109 mg/dL (65-100) H 01/26/19 14:50 POC Glucose 131 (70-105) H 01/28/19 18:02 Lactic Acid 1.00 mmol/L (0.7-2.0) 01/26/19 18:29 Calcium 9.4 mg/dL (8.4-10.2) 01/26/19 14:50 Magnesium 2.00 mg/dL (1.7-2.3) 01/26/19 14:50 Total Creatine Kinase 55 units/L (30-135) 01/26/19 14:50 Troponin T < 0.010 ng/mL (0.00-0.029) 01/26/19 14:50 NT-Pro-B Natriuret Pep 322.4 pg/mL (0-900) 01/26/19 14:50 Urine Color [place] (Yellow) 01/26/19 18:03 Urine Turbidity Slightly-cloudy (Clear) 01/26/19 18:03 Urine pH 5.0 (5.0-7.0) 01/26/19 18:03 Ur Specific [place] 1.033 (1.003-1.030) H 01/26/19 18:03 Urine Protein 100 mg/dl mg/dL (Negative) 01/26/19 18:03 Urine Glucose (UA) Neg mg/dL (Negative) 01/26/19 18:03 Urine Ketones Tr mg/dL (Negative) 01/26/19 18:03 Urine Blood Neg (Negative) 01/26/19 18:03 Urine Nitrite Neg (Negative) 01/26/19 18:03 Urine Bilirubin Neg (Negative) 01/26/19 18:03 Urine Urobilinogen 4.0 mg/dL (<2.0) 01/26/19 18:03 Ur Leukocyte Esterase Neg (Negative) 01/26/19 18:03 Urine WBC (Auto) 7.0 /HPF (0.0-6.0) H 01/26/19 18:03 Urine RBC (Auto) 4.0 /HPF (0.0-6.0) 01/26/19 18:03 U Epithel Cells (Auto) 5.0 /HPF (0-13.0) 01/26/19 18:03 Hyaline Casts 3 /LPF 01/26/19 18:03 Urine Mucus Few /HPF 01/26/19 18:03 Active Medications - Current Medications Current Medications: Generic Name Dose Route Start Last Admin Trade Name Freq PRN Reason Stop Dose Admin Albuterol/Ipratropium 1 ampul 01/26/19 20:00 01/28/19 13:35 Duoneb *Not For Prn Use* IH 1 ampul Q6HRT CODY Administration Azithromycin 500 mg 01/28/19 10:00 01/28/19 09:23 Zithromax PO 500 mg QDAY CODY Administration Benzonatate 200 mg 01/26/19 23:45 01/28/19 14:06 Tessalon Perles PO 200 mg Q8HR CODY Administration Budesonide 0.5 mg 01/26/19 20:00 01/28/19 08:39 Pulmicort IH 0.5 mg Q12HRT CODY Administration Carvedilol 6.25 mg 01/27/19 11:00 01/28/19 09:22 Coreg PO 6.25 mg BID CODY Administration Ceftriaxone Sodium 1 gm in 50 mls @ 100 mls/hr 01/27/19 10:00 01/28/19 09:20 Rocephin/Ns 1 Gm/50 Ml IV 100 mls/hr Q24HR CODY Administration Protocol Methylprednisolone Sodium Succinate 40 mg 01/27/19 00:00 01/28/19 18:20 Solu-Medrol IV 40 mg Q6HR CODY Administration Montelukast Sodium 10 mg 01/26/19 22:00 01/27/19 21:13 Singulair PO 10 mg QHS CODY Administration Nutrition/Malnutrition Assess - Dietary Evaluation Nutrition/Malnutrition Findings: Nutrition Notes Start: 01/27/19 12:32 Freq: Status: Active Protocol: Document 01/27/19 12:32 EB (Rec: 01/27/19 12:33 EB [id number]) Co-Sign 01/27/19 12:32 LP Nutrition Notes 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 Alfonso Hung. Nutrition Intervention Revisit per MD consult or patient Sign Off request:
[2019-01-28] MEDS: SINGULAIR PO SCH (21:50)
[2019-01-29] MEDS: SOLU-Medrol IV SCH ×4 (00:02→18:42)
[2019-01-29] MEDS: DUONEB *Not for PRN Use IH SCH ×5 (02:40→19:54)
[2019-01-29] MEDS: APRESOLINE IV PRN (06:28)
[2019-01-29] MEDS: TESSALON PERLES PO SCH ×3 (06:29→21:36)
[2019-01-29] MEDS: PULMICORT IH SCH ×2 (07:07→19:54)
[2019-01-29] MEDS ORDERED: PROVENTIL IH PRN (08:00)
[2019-01-29] MEDS ORDERED: CLARITIN-D 24HR PO SCH (10:00)
[2019-01-29] MEDS: ZITHROMAX PO SCH (10:26)
[2019-01-29] MEDS: COREG PO SCH ×2 (10:26→21:37)
[2019-01-29] MEDS: ROCEPHIN/NS 1 GM/50 ML 1 GM/50 ML BAG IV SCH (10:26)
[2019-01-29] MEDS: CLARITIN-D 24HR PO SCH (16:57)
--- NOTE | 2019-01-29 18:41 | Progress Note ---
Assessment and Plan Assessment and plan: --Acute hypoxic respiratory failure; requiring BiPAP Oxygen titrated to O2 sats more than 90%, BiPAP as needed Nebulizers IV steroids inhalation steroids --Acute exacerbation of COPD with acute bronchitis Oxygen titrated O2 sats more than 90%, nebulizers, IV steroids IV antibiotics, inhalation steroids, pulmonary evaluation if needed --Right-sided pneumonia (CAP); Continue IV antibiotics Rocephin and Zithromax, follow cultures Supportive care -- Hypertension; moderate control, continue current antihypertensives When necessary hydralazine -- Dehydration; IV fluids and supportive care --DVT prophylaxis; Lovenox --Full code Monitor closely and adjust the management as needed Evaluation for home oxygen at discharge History Interval history: Patient seen and examined medical records reviewed Patient complaining of shortness of breath and cough On BiPAP, Mild distress Vital signs reviewed Hospitalist Physical - Constitutional Vitals: Temp Pulse Resp BP Pulse Ox 97.2 F L 108 H 29 H 128/93 96 01/29/19 03:30 01/29/19 15:50 01/29/19 15:50 01/29/19 08:09 01/29/19 15:50 General appearance: Present: no acute distress, well-nourished - EENT Eyes: Present: PERRL, EOM intact - Neck Neck: Present: supple, normal ROM - Respiratory Respiratory effort: normal Respiratory: bilateral: diminished, negative: rales, rhonchi, wheezing - Cardiovascular Rhythm: regular Heart Sounds: Present: S1 & S2 - Extremities Extremities: no ischemia, No edema - Abdominal General gastrointestinal: soft, non-tender, non-distended, normal bowel sounds - Integumentary Integumentary: Present: clear, warm - Psychiatric Psychiatric: appropriate mood/affect, cooperative - Neurologic Neurologic: CNII-XII intact, moves all extremities Results - Labs CBC & Chem 7: 01/26/19 14:50 01/26/19 14:50 Labs: Laboratory Last Values WBC 3.7 K/mm3 (4.5-11.0) L 01/26/19 14:50 RBC 5.44 M/mm3 (3.65-5.03) H 01/26/19 14:50 Hgb 14.8 gm/dl (10.1-14.3) H 01/26/19 14:50 Hct 44.4 % (30.3-42.9) H 01/26/19 14:50 MCV 82 fl (79-97) 01/26/19 14:50 MCH 27 pg (28-32) L 01/26/19 14:50 MCHC 33 % (30-34) 01/26/19 14:50 RDW 16.4 % (13.2-15.2) H 01/26/19 14:50 Plt Count 174 K/mm3 (140-440) 01/26/19 14:50 Lymph % (Auto) 19.7 % (13.4-35.0) 01/26/19 14:50 [place] % (Auto) 13.6 % (0.0-7.3) H 01/26/19 14:50 Eos % (Auto) 0.3 % (0.0-4.3) 01/26/19 14:50 Baso % (Auto) 0.3 % (0.0-1.8) 01/26/19 14:50 Lymph # 0.7 K/mm3 (1.2-5.4) L 01/26/19 14:50 [place] # 0.5 K/mm3 (0.0-0.8) 01/26/19 14:50 Eos # 0.0 K/mm3 (0.0-0.4) 01/26/19 14:50 Baso # 0.0 K/mm3 (0.0-0.1) 01/26/19 14:50 Seg Neutrophils % 66.1 % (40.0-70.0) 01/26/19 14:50 Seg Neutrophils # 2.5 K/mm3 (1.8-7.7) 01/26/19 14:50 PT 16.0 Sec. (12.2-14.9) H 01/26/19 14:50 INR 1.20 (0.87-1.13) H 01/26/19 14:50 Sodium 138 mmol/L (137-145) 01/26/19 14:50 Potassium 4.5 mmol/L (3.6-5.0) 01/26/19 14:50 Chloride 98.5 mmol/L (98-107) 01/26/19 14:50 Carbon Dioxide 27 mmol/L (22-30) 01/26/19 14:50 Anion Gap 17 mmol/L 01/26/19 14:50 BUN 13 mg/dL (7-17) 01/26/19 14:50 Creatinine 0.8 mg/dL (0.7-1.2) 01/26/19 14:50 Estimated GFR > 60 ml/min 01/26/19 14:50 BUN/Creatinine Ratio 16 % 01/26/19 14:50 Glucose 109 mg/dL (65-100) H 01/26/19 14:50 POC Glucose 127 (70-105) H 01/29/19 11:43 Lactic Acid 1.00 mmol/L (0.7-2.0) 01/26/19 18:29 Calcium 9.4 mg/dL (8.4-10.2) 01/26/19 14:50 Magnesium 2.00 mg/dL (1.7-2.3) 01/26/19 14:50 Total Creatine Kinase 55 units/L (30-135) 01/26/19 14:50 Troponin T < 0.010 ng/mL (0.00-0.029) 01/26/19 14:50 NT-Pro-B Natriuret Pep 322.4 pg/mL (0-900) 01/26/19 14:50 Urine Color [place] (Yellow) 01/26/19 18:03 Urine Turbidity Slightly-cloudy (Clear) 01/26/19 18:03 Urine pH 5.0 (5.0-7.0) 01/26/19 18:03 Ur Specific [place] 1.033 (1.003-1.030) H 01/26/19 18:03 Urine Protein 100 mg/dl mg/dL (Negative) 01/26/19 18:03 Urine Glucose (UA) Neg mg/dL (Negative) 01/26/19 18:03 Urine Ketones Tr mg/dL (Negative) 01/26/19 18:03 Urine Blood Neg (Negative) 01/26/19 18:03 Urine Nitrite Neg (Negative) 01/26/19 18:03 Urine Bilirubin Neg (Negative) 01/26/19 18:03 Urine Urobilinogen 4.0 mg/dL (<2.0) 01/26/19 18:03 Ur Leukocyte Esterase Neg (Negative) 01/26/19 18:03 Urine WBC (Auto) 7.0 /HPF (0.0-6.0) H 01/26/19 18:03 Urine RBC (Auto) 4.0 /HPF (0.0-6.0) 01/26/19 18:03 U Epithel Cells (Auto) 5.0 /HPF (0-13.0) 01/26/19 18:03 Hyaline Casts 3 /LPF 01/26/19 18:03 Urine Mucus Few /HPF 01/26/19 18:03 Active Medications - Current Medications Current Medications: Generic Name Dose Route Start Last Admin Trade Name Freq PRN Reason Stop Dose Admin Albuterol 2.5 mg 01/29/19 08:00 Proventil IH Q4HRT PRN Shortness Of Breath Albuterol/Ipratropium 1 ampul 01/26/19 20:00 01/29/19 15:46 Duoneb *Not For Prn Use* IH 1 ampul Q6HRT CODY Administration Azithromycin 500 mg 01/28/19 10:00 01/29/19 10:26 Zithromax PO 500 mg QDAY CODY Administration Benzonatate 200 mg 01/26/19 23:45 01/29/19 15:32 Tessalon Perles PO 200 mg Q8HR CODY Administration Budesonide 0.5 mg 01/26/19 20:00 01/29/19 07:07 Pulmicort IH 0.5 mg Q12HRT CODY Administration Carvedilol 6.25 mg 01/27/19 11:00 01/29/19 10:26 Coreg PO 6.25 mg BID CODY Administration Hydralazine HCl 20 mg 01/29/19 04:38 01/29/19 06:28 Apresoline IV 20 mg Q4HR PRN Administration Hypertension Ceftriaxone Sodium 1 gm in 50 mls @ 100 mls/hr 01/27/19 10:00 01/29/19 10:26 Rocephin/Ns 1 Gm/50 Ml IV 100 mls/hr Q24HR CODY Administration Protocol Loratadine/Pseudoephedrine Sulfate 1 each 01/29/19 17:00 01/29/19 16:57 Claritin-D 24hr PO 1 each Q24HR CODY Administration Methylprednisolone Sodium Succinate 40 mg 01/27/19 00:00 01/29/19 15:32 Solu-Medrol IV 40 mg Q6HR CODY Administration Montelukast Sodium 10 mg 01/26/19 22:00 01/28/19 21:50 Singulair PO 10 mg QHS CODY Administration Nutrition/Malnutrition Assess - Dietary Evaluation Nutrition/Malnutrition Findings: Nutrition Notes Start: 01/27/19 12:32 Freq: Status: Active Protocol: Document 01/27/19 12:32 EB (Rec: 01/27/19 12:33 EB [id number]) Co-Sign 01/27/19 12:32 LP Nutrition Notes 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 Alfonso 21. Nutrition Intervention Revisit per MD consult or patient Sign Off request:
[2019-01-29] MEDS: SINGULAIR PO SCH (21:36)
[2019-01-30] MEDS: SOLU-Medrol IV SCH ×4 (00:01→18:10)
[2019-01-30] MEDS: DUONEB *Not for PRN Use IH SCH ×4 (02:16→21:10)
[2019-01-30] MEDS: TESSALON PERLES PO SCH ×3 (05:40→21:38)
[2019-01-30] MEDS: ROCEPHIN/NS 1 GM/50 ML 1 GM/50 ML BAG IV SCH (10:09)
[2019-01-30] MEDS: ZITHROMAX PO SCH (10:10)
[2019-01-30] MEDS: COREG PO SCH ×2 (10:11→21:39)
--- NOTE | 2019-01-30 10:25 | Progress Note ---
Assessment and Plan Assessment and plan: --Acute hypoxic respiratory failure; requiring BiPAP She continues to have respiratory distress, declining BiPAP Continue nebulizers and IV steroids antibiotics and supportive care Patient evaluated for home oxygen/home BiPAP and DC --Acute exacerbation of COPD with acute bronchitis Oxygen titrated O2 sats more than 90%, nebulizers, IV steroids IV antibiotics, inhalation steroids, pulmonary evaluation if needed --Right-sided pneumonia (CAP); Continue IV antibiotics Rocephin and Zithromax, follow cultures Supportive care -- Hypertension; moderate control, continue current antihypertensives When necessary hydralazine -- Dehydration; IV fluids and supportive care --DVT prophylaxis; Lovenox --Full code Monitor closely and adjust the management as needed Evaluation for home oxygen at discharge History Interval history: Patient seen and examined medical records reviewed Patient is in mild distress sitting up in the bed, requiring ongoing BiPAP Mild cough nonproductive Denies chest pain Vital signs reviewed Hospitalist Physical - Constitutional Vitals: Temp Pulse Resp BP Pulse Ox 98.0 F 111 H 22 159/109 97 01/30/19 07:32 01/30/19 07:32 01/30/19 07:32 01/30/19 10:11 01/30/19 07:32 General appearance: Present: mild distress, well-nourished - EENT Eyes: Present: PERRL, EOM intact - Neck Neck: Present: supple, normal ROM - Respiratory Respiratory effort: normal Respiratory: bilateral: diminished, rhonchi, wheezing, negative: rales - Cardiovascular Rhythm: regular Heart Sounds: Present: S1 & S2 - Extremities Extremities: no ischemia, No edema - Abdominal General gastrointestinal: soft, non-tender, non-distended, normal bowel sounds - Integumentary Integumentary: Present: clear, warm - Psychiatric Psychiatric: appropriate mood/affect, cooperative - Neurologic Neurologic: CNII-XII intact, moves all extremities Results - Labs CBC & Chem 7: 01/26/19 14:50 01/26/19 14:50 Labs: Laboratory Last Values WBC 3.7 K/mm3 (4.5-11.0) L 01/26/19 14:50 RBC 5.44 M/mm3 (3.65-5.03) H 01/26/19 14:50 Hgb 14.8 gm/dl (10.1-14.3) H 01/26/19 14:50 Hct 44.4 % (30.3-42.9) H 01/26/19 14:50 MCV 82 fl (79-97) 01/26/19 14:50 MCH 27 pg (28-32) L 01/26/19 14:50 MCHC 33 % (30-34) 01/26/19 14:50 RDW 16.4 % (13.2-15.2) H 01/26/19 14:50 Plt Count 174 K/mm3 (140-440) 01/26/19 14:50 Lymph % (Auto) 19.7 % (13.4-35.0) 01/26/19 14:50 [place] % (Auto) 13.6 % (0.0-7.3) H 01/26/19 14:50 Eos % (Auto) 0.3 % (0.0-4.3) 01/26/19 14:50 Baso % (Auto) 0.3 % (0.0-1.8) 01/26/19 14:50 Lymph # 0.7 K/mm3 (1.2-5.4) L 01/26/19 14:50 [place] # 0.5 K/mm3 (0.0-0.8) 01/26/19 14:50 Eos # 0.0 K/mm3 (0.0-0.4) 01/26/19 14:50 Baso # 0.0 K/mm3 (0.0-0.1) 01/26/19 14:50 Seg Neutrophils % 66.1 % (40.0-70.0) 01/26/19 14:50 Seg Neutrophils # 2.5 K/mm3 (1.8-7.7) 01/26/19 14:50 PT 16.0 Sec. (12.2-14.9) H 01/26/19 14:50 INR 1.20 (0.87-1.13) H 01/26/19 14:50 Sodium 138 mmol/L (137-145) 01/26/19 14:50 Potassium 4.5 mmol/L (3.6-5.0) 01/26/19 14:50 Chloride 98.5 mmol/L (98-107) 01/26/19 14:50 Carbon Dioxide 27 mmol/L (22-30) 01/26/19 14:50 Anion Gap 17 mmol/L 01/26/19 14:50 BUN 13 mg/dL (7-17) 01/26/19 14:50 Creatinine 0.8 mg/dL (0.7-1.2) 01/26/19 14:50 Estimated GFR > 60 ml/min 01/26/19 14:50 BUN/Creatinine Ratio 16 % 01/26/19 14:50 Glucose 109 mg/dL (65-100) H 01/26/19 14:50 POC Glucose 128 (70-105) H 01/30/19 04:54 Lactic Acid 1.00 mmol/L (0.7-2.0) 01/26/19 18:29 Calcium 9.4 mg/dL (8.4-10.2) 01/26/19 14:50 Magnesium 2.00 mg/dL (1.7-2.3) 01/26/19 14:50 Total Creatine Kinase 55 units/L (30-135) 01/26/19 14:50 Troponin T < 0.010 ng/mL (0.00-0.029) 01/26/19 14:50 NT-Pro-B Natriuret Pep 322.4 pg/mL (0-900) 01/26/19 14:50 Urine Color [place] (Yellow) 01/26/19 18:03 Urine Turbidity Slightly-cloudy (Clear) 01/26/19 18:03 Urine pH 5.0 (5.0-7.0) 01/26/19 18:03 Ur Specific [place] 1.033 (1.003-1.030) H 01/26/19 18:03 Urine Protein 100 mg/dl mg/dL (Negative) 01/26/19 18:03 Urine Glucose (UA) Neg mg/dL (Negative) 01/26/19 18:03 Urine Ketones Tr mg/dL (Negative) 01/26/19 18:03 Urine Blood Neg (Negative) 01/26/19 18:03 Urine Nitrite Neg (Negative) 01/26/19 18:03 Urine Bilirubin Neg (Negative) 01/26/19 18:03 Urine Urobilinogen 4.0 mg/dL (<2.0) 01/26/19 18:03 Ur Leukocyte Esterase Neg (Negative) 01/26/19 18:03 Urine WBC (Auto) 7.0 /HPF (0.0-6.0) H 01/26/19 18:03 Urine RBC (Auto) 4.0 /HPF (0.0-6.0) 01/26/19 18:03 U Epithel Cells (Auto) 5.0 /HPF (0-13.0) 01/26/19 18:03 Hyaline Casts 3 /LPF 01/26/19 18:03 Urine Mucus Few /HPF 01/26/19 18:03 Active Medications - Current Medications Current Medications: Generic Name Dose Route Start Last Admin Trade Name Freq PRN Reason Stop Dose Admin Albuterol 2.5 mg 01/29/19 08:00 Proventil IH Q4HRT PRN Shortness Of Breath Albuterol/Ipratropium 1 ampul 01/26/19 20:00 01/30/19 02:16 Duoneb *Not For Prn Use* IH 1 ampul Q6HRT CODY Administration Azithromycin 500 mg 01/28/19 10:00 01/30/19 10:10 Zithromax PO 500 mg QDAY CODY Administration Benzonatate 200 mg 01/26/19 23:45 01/30/19 05:40 Tessalon Perles PO 200 mg Q8HR CODY Administration Budesonide 0.5 mg 01/26/19 20:00 01/29/19 19:54 Pulmicort IH 0.5 mg Q12HRT CODY Administration Carvedilol 6.25 mg 01/27/19 11:00 01/30/19 10:11 Coreg PO 6.25 mg BID CODY Administration Hydralazine HCl 20 mg 01/29/19 04:38 01/29/19 06:28 Apresoline IV 20 mg Q4HR PRN Administration Hypertension Ceftriaxone Sodium 1 gm in 50 mls @ 100 mls/hr 01/27/19 10:00 01/30/19 10:09 Rocephin/Ns 1 Gm/50 Ml IV 100 mls/hr Q24HR CODY Administration Protocol Loratadine/Pseudoephedrine Sulfate 1 each 01/29/19 17:00 01/29/19 16:57 Claritin-D 24hr PO 1 each Q24HR CODY Administration Methylprednisolone Sodium Succinate 40 mg 01/27/19 00:00 01/30/19 05:40 Solu-Medrol IV 40 mg Q6HR CODY Administration Montelukast Sodium 10 mg 01/26/19 22:00 01/29/19 21:36 Singulair PO 10 mg QHS CODY Administration Nutrition/Malnutrition Assess - Dietary Evaluation Nutrition/Malnutrition Findings: Nutrition Notes Start: 01/27/19 12:32 Freq: Status: Active Protocol: Document 01/27/19 12:32 EB (Rec: 01/27/19 12:33 EB [id number]) Co-Sign 01/27/19 12:32 LP Nutrition Notes 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 Alfonso 21. Nutrition Intervention Revisit per MD consult or patient Sign Off request:
[2019-01-30] MEDS: PULMICORT IH SCH ×2 (11:13→21:10)
[2019-01-30] MEDS: CLARITIN-D 24HR PO SCH (11:35)
[2019-01-30] MEDS: SINGULAIR PO SCH (21:39)
[2019-01-31] MEDS: SOLU-Medrol IV SCH ×5 (00:58→22:44)
[2019-01-31] MEDS: XANAX PO PRN ×2 (01:07→20:17)
[2019-01-31] MEDS: DUONEB *Not for PRN Use IH SCH ×4 (02:20→19:59)
[2019-01-31] MEDS: TESSALON PERLES PO SCH ×3 (05:39→21:22)
[2019-01-31 06:27] LABS: Basophils % (Auto) 0.2 % (0.0-1.8); Hemoglobin 13.6 gm/dl (10.1-14.3); Lymphocytes # (Auto) 0.6 K/mm3 (1.2-5.4); Lymphocytes % (Auto) 14.9 % (13.4-35.0); Mean Corpuscular HGB Conc 33 % (30-34); Mean Corpuscular Volume 81 fl (79-97); Monocytes # (Auto) 0.2 K/mm3 (0.0-0.8); Monocytes % (Auto) 4.8 % (0.0-7.3); Platelet Count 194 K/mm3 (140-440); Red Blood Count 5.06 M/mm3 (3.65-5.03); Red Cell Distribution Width 16.8 % (13.2-15.2)
[2019-01-31 06:50] LABS: BUN/Creatinine Ratio 31; Blood Urea Nitrogen 25 mg/dL (7-17); Calcium 9.2 mg/dL (8.4-10.2); Hemolysis Index 4
[2019-01-31] MEDS: ZITHROMAX PO SCH (10:16)
[2019-01-31] MEDS: COREG PO SCH ×2 (10:16→21:22)
[2019-01-31] MEDS: ROCEPHIN/NS 1 GM/50 ML 1 GM/50 ML BAG IV SCH (10:16)
--- NOTE | 2019-01-31 10:24 | Progress Note ---
Assessment and Plan Assessment and plan: --Acute hypoxic respiratory failure; on nasal cannula oxygen She feels better and feels better BiPAP, as needed To be evaluated for home oxygen and BiPAP at discharge --Acute exacerbation of COPD with acute bronchitis titrate O2 sats more than 90%, nebulizers, tapering doses IV steroids IV antibiotics, inhalation steroids, pulmonary evaluation if needed --Right-sided pneumonia (CAP); Continue IV antibiotics Rocephin and Zithromax, follow cultures -- Hypertension; moderate control, continue current antihypertensives When necessary hydralazine -- Dehydration; IV fluids and supportive care --DVT prophylaxis; Lovenox --Full code Ambulate as tolerated To document Resting and ambulatory room air O2 sats . Possible discharge in 1-2 days if stable Plan of care is reviewed with the patient and her nurse History Interval history: Patient seen and examined this morning medical records reviewed Patient feels slightly better, shortness of breath and wheezing slightly improved Denies chest pain or palpitation Alert awake oriented 3 not in acute distress Vital signs noted Hospitalist Physical - Constitutional Vitals: Temp Pulse Resp BP Pulse Ox 98.3 F 106 H 22 148/92 94 01/31/19 08:16 01/31/19 08:16 01/31/19 08:16 01/31/19 08:16 01/31/19 08:16 General appearance: Present: no acute distress, well-nourished, other (on nasal cannula oxygen) - EENT Eyes: Present: PERRL, EOM intact - Neck Neck: Present: supple, normal ROM - Respiratory Respiratory effort: normal Respiratory: bilateral: diminished, wheezing, negative: rales, rhonchi - Cardiovascular Rhythm: regular Heart Sounds: Present: S1 & S2 - Extremities Extremities: no ischemia, No edema - Abdominal General gastrointestinal: soft, non-tender, non-distended, normal bowel sounds - Integumentary Integumentary: Present: clear, warm - Psychiatric Psychiatric: appropriate mood/affect, cooperative - Neurologic Neurologic: CNII-XII intact, moves all extremities Results - Labs CBC & Chem 7: 01/31/19 05:43 01/31/19 05:43 Labs: Laboratory Last Values WBC 4.2 K/mm3 (4.5-11.0) L 01/31/19 05:43 RBC 5.06 M/mm3 (3.65-5.03) H 01/31/19 05:43 Hgb 13.6 gm/dl (10.1-14.3) 01/31/19 05:43 Hct 41.0 % (30.3-42.9) 01/31/19 05:43 MCV 81 fl (79-97) 01/31/19 05:43 MCH 27 pg (28-32) L 01/31/19 05:43 MCHC 33 % (30-34) 01/31/19 05:43 RDW 16.8 % (13.2-15.2) H 01/31/19 05:43 Plt Count 194 K/mm3 (140-440) 01/31/19 05:43 Lymph % (Auto) 14.9 % (13.4-35.0) 01/31/19 05:43 [place] % (Auto) 4.8 % (0.0-7.3) 01/31/19 05:43 Eos % (Auto) 0.0 % (0.0-4.3) 01/31/19 05:43 Baso % (Auto) 0.2 % (0.0-1.8) 01/31/19 05:43 Lymph # 0.6 K/mm3 (1.2-5.4) L 01/31/19 05:43 [place] # 0.2 K/mm3 (0.0-0.8) 01/31/19 05:43 Eos # 0.0 K/mm3 (0.0-0.4) 01/31/19 05:43 Baso # 0.0 K/mm3 (0.0-0.1) 01/31/19 05:43 Seg Neutrophils % 80.1 % (40.0-70.0) H 01/31/19 05:43 Seg Neutrophils # 3.4 K/mm3 (1.8-7.7) 01/31/19 05:43 PT 16.0 Sec. (12.2-14.9) H 01/26/19 14:50 INR 1.20 (0.87-1.13) H 01/26/19 14:50 Sodium 139 mmol/L (137-145) 01/31/19 05:43 Potassium 4.3 mmol/L (3.6-5.0) 01/31/19 05:43 Chloride 100.5 mmol/L (98-107) 01/31/19 05:43 Carbon Dioxide 28 mmol/L (22-30) 01/31/19 05:43 Anion Gap 15 mmol/L 01/31/19 05:43 BUN 25 mg/dL (7-17) H 01/31/19 05:43 Creatinine 0.8 mg/dL (0.7-1.2) 01/31/19 05:43 Estimated GFR > 60 ml/min 01/31/19 05:43 BUN/Creatinine Ratio 31 % 01/31/19 05:43 Glucose 133 mg/dL (65-100) H 01/31/19 05:43 POC Glucose 138 (70-105) H 01/31/19 05:38 Lactic Acid 1.00 mmol/L (0.7-2.0) 01/26/19 18:29 Calcium 9.2 mg/dL (8.4-10.2) 01/31/19 05:43 Magnesium 2.00 mg/dL (1.7-2.3) 01/26/19 14:50 Total Creatine Kinase 55 units/L (30-135) 01/26/19 14:50 Troponin T < 0.010 ng/mL (0.00-0.029) 01/26/19 14:50 NT-Pro-B Natriuret Pep 322.4 pg/mL (0-900) 01/26/19 14:50 Urine Color Megan (Yellow) 01/26/19 18:03 Urine Turbidity Slightly-cloudy (Clear) 01/26/19 18:03 Urine pH 5.0 (5.0-7.0) 01/26/19 18:03 Ur Specific [place] 1.033 (1.003-1.030) H 01/26/19 18:03 Urine Protein 100 mg/dl mg/dL (Negative) 01/26/19 18:03 Urine Glucose (UA) Neg mg/dL (Negative) 01/26/19 18:03 Urine Ketones Tr mg/dL (Negative) 01/26/19 18:03 Urine Blood Neg (Negative) 01/26/19 18:03 Urine Nitrite Neg (Negative) 01/26/19 18:03 Urine Bilirubin Neg (Negative) 01/26/19 18:03 Urine Urobilinogen 4.0 mg/dL (<2.0) 01/26/19 18:03 Ur Leukocyte Esterase Neg (Negative) 01/26/19 18:03 Urine WBC (Auto) 7.0 /HPF (0.0-6.0) H 01/26/19 18:03 Urine RBC (Auto) 4.0 /HPF (0.0-6.0) 01/26/19 18:03 U Epithel Cells (Auto) 5.0 /HPF (0-13.0) 01/26/19 18:03 Hyaline Casts 3 /LPF 01/26/19 18:03 Urine Mucus Few /HPF 01/26/19 18:03 Active Medications - Current Medications Current Medications: Generic Name Dose Route Start Last Admin Trade Name Freq PRN Reason Stop Dose Admin Albuterol 2.5 mg 01/29/19 08:00 Proventil IH Q4HRT PRN Shortness Of Breath Albuterol/Ipratropium 1 ampul 01/26/19 20:00 01/31/19 02:20 Duoneb *Not For Prn Use* IH 1 ampul Q6HRT CODY Administration Alprazolam 0.25 mg 01/30/19 10:26 01/31/19 01:07 Xanax PO 0.25 mg Q8H PRN Administration Anxiety Azithromycin 500 mg 01/28/19 10:00 01/30/19 10:10 Zithromax PO 500 mg QDAY CODY Administration Benzonatate 200 mg 01/26/19 23:45 01/31/19 05:39 Tessalon Perles PO 200 mg Q8HR CODY Administration Budesonide 0.5 mg 01/26/19 20:00 01/30/19 21:10 Pulmicort IH 0.5 mg Q12HRT CODY Administration Carvedilol 6.25 mg 01/27/19 11:00 01/30/19 21:39 Coreg PO 6.25 mg BID CODY Administration Hydralazine HCl 20 mg 01/29/19 04:38 01/29/19 06:28 Apresoline IV 20 mg Q4HR PRN Administration Hypertension Ceftriaxone Sodium 1 gm in 50 mls @ 100 mls/hr 01/27/19 10:00 01/30/19 10:09 Rocephin/Ns 1 Gm/50 Ml IV 100 mls/hr Q24HR CODY Administration Protocol Loratadine/Pseudoephedrine Sulfate 1 each 01/29/19 17:00 01/30/19 11:35 Claritin-D 24hr PO 1 each Q24HR CODY Administration Methylprednisolone Sodium Succinate 40 mg 01/27/19 00:00 01/31/19 05:39 Solu-Medrol IV 40 mg Q6HR CODY Administration Montelukast Sodium 10 mg 01/26/19 22:00 01/30/19 21:39 Singulair PO 10 mg QHS CODY Administration Nutrition/Malnutrition Assess - Dietary Evaluation Nutrition/Malnutrition Findings: Nutrition Notes Start: 01/27/19 12:32 Freq: Status: Active Protocol: Document 01/27/19 12:32 EB (Rec: 01/27/19 12:33 EB [id number]) Co-Sign 01/27/19 12:32 LP Nutrition Notes Need for Assessment 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 Alfonso 21. Nutrition Intervention Revisit per MD consult or patient Sign Off request:
[2019-01-31] MEDS ORDERED: DUONEB *Not for PRN Use IH ONE (10:28)
[2019-01-31] MEDS: CLARITIN-D 24HR PO SCH (10:30)
[2019-01-31] MEDS: PULMICORT IH SCH ×2 (10:58→19:58)
[2019-01-31] MEDS ORDERED: SOLU-Medrol IV SCH (18:00)
[2019-01-31] MEDS: SINGULAIR PO SCH (21:22)
[2019-02-01] MEDS: DUONEB *Not for PRN Use IH SCH ×3 (02:55→14:32)
[2019-02-01] MEDS ORDERED: SOLU-Medrol IV SCH (06:00)
[2019-02-01] MEDS: SOLU-Medrol IV SCH ×2 (06:25→14:06)
[2019-02-01] MEDS: TESSALON PERLES PO SCH ×2 (06:25→14:05)
[2019-02-01] MEDS ORDERED: DUONEB *Not for PRN Use IH ONE (07:30)
--- NOTE | 2019-02-01 07:43 | Discharge Summary ---
Providers - Providers Date of Admission: 01/27/19 10:00 Date of discharge: 02/01/19 Attending physician: JASWANT FU 01/27/19 07:45 Physical Therapy Evaluation and Treat [CONS] Routine Comment: Reason For Exam: weakness Primary care physician: ESPERANZA VANN Hospitalization Reason for admission: worsening shortness of breath/acute hypoxic respiratory failure Condition: Good Pertinent studies: Chest x-ray; emphysematous changes of the lung opacities concerning for early pneumonia infiltrates trace pleural effusion Hospital course: 73-year-old -[place] female patient with significant past medical history of COPD alcoholic cirrhosis anemia was admitted through emergency room with worsening shortness of breath and acute on chronic hypoxic respiratory failure patient was noted to have acute exacerbation of COPD, chest x-ray possible pneumonia Patient was managed with nebulizers oxygen IV steroids IV antibiotics inhalation steroids and supportive care Patient patient's symptoms gradually improved, steroids were tapered, Today patient is comfortable in no new complaints Vital signs stable physical examination unremarkable, Patient is hemodynamically and clinically stable at discharge Home oxygen evaluation was done, patient's O2 sats resting and ambulatory room air O2 sats more than 95-96% No indication for home oxygen, Patient advised to see a private we[facility] needle [facility] for further evaluation and management Discharge diagnosis: --Acute hypoxic respiratory failure; on nasal cannula oxygen She feels better and feels better BiPAP, as needed, home oxygen evaluation, a resting and ambulatory room air O2 sats more than 95% --Acute exacerbation of COPD with acute bronchitis titrate O2 sats more than 90%, nebulizers, tapering doses IV steroids IV antibiotics, inhalation steroids, pulmonary evaluation if needed --Right-sided pneumonia (CAP); Continue IV antibiotics Rocephin and Zithromax, follow cultures -- Hypertension; moderate control, continue current antihypertensives When necessary hydralazine -- Dehydration; IV fluids and supportive care --DVT prophylaxis; Lovenox --Full code status Patient is stable at discharge Disposition: -01 TO HOME OR SELFCARE Time spent for discharge: 32 min Core Measure Documentation - Palliative Care Palliative Care/ Comfort Measures: Not Applicable - Core Measures Any of the following diagnoses?: none Exam - Constitutional Vitals: Temp Pulse Resp BP Pulse Ox 98.6 F 90 16 148/88 95 02/01/19 01:45 02/01/19 02:55 02/01/19 02:55 02/01/19 01:45 02/01/19 02:45 General appearance: Present: no acute distress, well-nourished - EENT Eyes: Present: PERRL, EOM intact - Neck Neck: Present: supple, normal ROM - Respiratory Respiratory effort: normal Respiratory: bilateral: diminished, negative: rales, rhonchi, wheezing - Cardiovascular Rhythm: regular Heart Sounds: Present: S1 & S2 - Extremities Extremities: no ischemia, No edema - Abdominal General gastrointestinal: Present: soft, non-tender, non-distended, normal bowel sounds - Integumentary Integumentary: Present: clear, warm - Musculoskeletal Musculoskeletal: strength equal bilaterally - Psychiatric Psychiatric: appropriate mood/affect, cooperative - Neurologic Neurologic: CNII-XII intact, moves all extremities Plan Activity: advance as tolerated Diet: low salt Additional Instructions: Advised to follow private we[facility] needle [facility] in 1-2 weeks Follow up with: ESPERANZA VANN MD [Primary Care Provider] - 3-5 Days Prescriptions: Fluticasone/Salmeterol [Advair Diskus 250-50 mcg] 1 puff IH BID #1 disk.w.dev hydrALAZINE [Apresoline TAB] 25 mg PO Q8HR #90 tab Loratadine/Pseudoephedrine [Claritin-D 24HR] 1 each PO Q24HR #30 tablet Carvedilol [Coreg] 6.25 mg PO BID #60 tablet Prednisone [predniSONE 10 mg (6-Day Pack, 21 Tabs)] 10 mg PO .TAPER #1 tab.ds.pk Montelukast [Singulair] 10 mg PO QHS #30 tablet Benzonatate [Tessalon Perles] 200 mg PO Q8HR #30 capsule ALBUTEROL Inhaler(NF) [VENTOLIN Inhaler(NF)] 1 puff IH QID PRN #1 inha PRN Reason: Shortness Of Breath Azithromycin [Zithromax Z-MADISON] 0 mg PO DAILY #1 tab
[2019-02-01] MEDS: PULMICORT IH SCH (07:58)
[2019-02-01] MEDS: ROCEPHIN/NS 1 GM/50 ML 1 GM/50 ML BAG IV SCH (10:57)
[2019-02-01] MEDS: COREG PO SCH (10:57)
[2019-02-01] MEDS: ZITHROMAX PO SCH (10:57)
[2019-02-01] MEDS: CLARITIN-D 24HR PO SCH (11:17)
[2019-02-01] MEDS: APRESOLINE IV PRN (11:22)
[2019-02-01 13:48] VITALS: BP 120/65
[2019-02-01] MEDS ORDERED: APRESOLINE PO SCH (14:00)
== END 2019-02-01 17:50 | disposition home health service (06) | DRG 193 ==
LOC: ED 14:02 → 2B-ACE 18:29 → OBSVTOIN 01-27 10:00
PROVIDERS: ADMIT Internal Medicine; ATTEND Internal Medicine
PROC: 5A09457 Assistance with Respiratory Ventilation, 24-96 Consecutive Hours, Continuous Positive Airway Pressure (ICD-10-PCS; principal; 2019-01-29)
DX: J18.9 Pneumonia, unspecified organism (principal); J96.01 Acute respiratory failure with hypoxia; K74.60 Unspecified cirrhosis of liver; J20.9 Acute bronchitis, unspecified; E86.0 Dehydration; F17.200 Nicotine dependence, unspecified, uncomplicated; J43.9 Emphysema, unspecified; I11.0 Hypertensive heart disease with heart failure; I50.9 Heart failure, unspecified; K21.9 Gastro-esophageal reflux disease without esophagitis; M19.90 Unspecified osteoarthritis, unspecified site; Z79.899 Other long term (current) drug therapy; I25.2 Old myocardial infarction
CPT/HCPCS: 36415; 71045; 80048; 81001; 82140; 82550; 82962; 83735; 83880; 84484; 85025; 85610; 87040; 93005; 93010; 94640; 94660; 94760; G0378; J0360; J0456; J0696; J2920; J2930; J7040; J7050